=== PATIENT | female | born 1960 | race African-American/Black ===

== ENCOUNTER 2017-07-08 10:32 | Emergency (ER) | payer MEDICARE, MEDICAID ==
[~2017-07-08] VITALS: Ht 170.2 cm; Wt 68.0 kg
[~2017-07-08 10:32] MED LIST: ALIS150T PO; ASCO-339 PO; BUPR100T13 PO; BUPR100T3; CALC1TAB17 PO; CYCL-108 PO; DILT240C3 PO; DILT300C52; DOCU-138 PO; ESOM40CA PO; FERR1POW3; GLYC1SUP; HYDR-3513 PO; LEVE500T19 PO; MIRT15TA6 PO; MONT10TA24 PO; PRIL10; PROAIR; PROAIR INH; TOPI15CA7; ZIPR20CA2; [UNRECOGNIZED DRUG - CODE]; [UNRECOGNIZED DRUG - CODE]
[2017-07-08 11:46] LABS: BASOPHILS % 0.9 % (0.0-2.0); EOSINOPHILS % 3.9 % (0.0-5.0); HEMATOCRIT. 35.7 % (36.0-48.0); HEMOGLOBIN. 11.5 g/dL (12.0-16.0); LYMPHOCYTES % 39.7 % (20.0-50.0); MEAN CORPUSCULAR HEMOGLOBIN 30.2 pg (28.0-32.0); MEAN CORPUSCULAR VOLUME 93.8 fL (81.0-99.0); MEAN PLATELET VOLUME 8.6 fl (7.4-10.4); MONOCYTES % 13.9 % (2.0-8.0); NEUTROPHILS % 41.6 % (40.0-76.0); PLATELET 235 x1000/uL (130-400); RED BLOOD CELL COUNT 3.81 mill/uL (4.2-5.4); RED CELL DISTRIBUTION WIDTH 14.5 % (11.6-14.6)
[2017-07-08 11:59] LABS: CARBON DIOXIDE 22 mEq/L (21-32); CHLORIDE 110 mEq/L (98-107); ETHANOL BLOOD 281 mg/dL
[2017-07-08] MEDS ORDERED: POTASSIUM CHLORIDE 20MEQ TABLET SR PO ONE (14:00)
[2017-07-08] MEDS ORDERED: SODIUM CHLORIDE 0.9% 1,000 ML IV ONE (14:15)
[2017-07-08 17:19] VITALS: BP 108/63
== END 2017-07-08 17:21 | disposition home or self-care (01) ==
LOC: ER 10:39
DX: F10.129 Alcohol abuse with intoxication, unspecified (principal); I10 Essential (primary) hypertension; E11.9 Type 2 diabetes mellitus without complications; J45.909 Unspecified asthma, uncomplicated; F10.20 Alcohol dependence, uncomplicated; Z88.1 Allergy status to other antibiotic agents
CPT/HCPCS: 36415; 80053; 83690; 85025; 96360; 96361; 99285; G0482